=== PATIENT | male | born 1965 | race African-American/Black ===

== ENCOUNTER 2020-08-22 21:31 | Emergency (ER) | payer SELFPAY ==
[~2020-08-22] VITALS: Ht 172.7 cm; Wt 86.2 kg
[2020-08-22 21:33] VITALS: BP 140/92; Ht 172.7 cm; Wt 86.2 kg
== END 2020-08-22 22:50 | disposition home or self-care (01) ==
LOC: ED 21:31
DX: U07.1 COVID-19 (principal); B34.9 Viral infection, unspecified
CPT/HCPCS: U0003